=== PATIENT | male | born 1995 | race Caucasian/White ===

== ENCOUNTER 2017-05-01 21:44 | Emergency (ER) | payer OTHER ==
[2017-05-01] MEDS ORDERED: Bacitracin Oint 1 GM U/D Packet ONE (21:55)
[2017-05-01] MEDS ORDERED: Lidocaine 1% 20 ML MDV ONE (21:56)
[2017-05-01 22:05] VITALS: BP 128/60
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
[2017-05-01] MEDS ORDERED: Lidocaine 1% 20 ML MDV INJECT ONE (22:31)
[2017-05-01] MEDS ORDERED: Bacitracin Oint 1 GM U/D Packet TOP ONE (22:59)
--- NOTE | 2017-05-02 10:18 | CR ---
EXAM DATE: 05/01/17 PATIENT'S AGE: 21 Patient: SHENA MORENO Facility: [place], [place] Site . Site : 1997 Study: XRay Extremity Left hand [id number] 10:22:28 PM Ordering Physician: Doctor Dawson Final Report: Indication: Left hand injury. Technique: Left hand two views. Comparison: None. Findings: No acute fracture or dislocation. No additional osseous abnormality. Soft tissues as imaged are unremarkable. Impression: No acute osseous abnormality. Dictated by Meng Castellano MD @ 05/01/2017 10:57:40 PM Dictated by: Meng Castellano MD @ 05/01/2017 22:57:49 (Electronic Signature) Report Signed by Proxy. [facility]
== END 2017-05-01 22:55 | disposition home or self-care (01) ==
LOC: MW.ED 21:44
DX: S61.412A Laceration without foreign body of left hand, initial encounter (principal); W29.8XXA Contact with other powered hand tools and household machinery, initial encounter
CPT/HCPCS: 12001; 73120-26-LT; 73120-LT; 99282; 99283